=== PATIENT | female | born 1970 | race African-American/Black ===

== ENCOUNTER 2016-11-08 10:46 | Emergency (ER) | payer OTHER ==
[~2016-11-08] VITALS: Ht 154.9 cm; Wt 73.5 kg
[~2016-11-08 10:46] MED LIST: FLEXERIL PO; MICROGESTIN FE1 EACH PO; NAPROSYN500 MG PO; NAPROXEN 500MG500 MG PO; NORCO 5-325 TA1 EACH PO; SYNTHROID75 MCG PO
[2016-11-08] MEDS ORDERED: FLEXERIL PO (12:37)
[2016-11-08] MEDS ORDERED: NORCO 5-325 TA1 EACH PO (12:37)
[2016-11-08] MEDS ORDERED: IBUPROFEN 600600 M1 PO (12:37)
[2016-11-08] MEDS ORDERED: MEDROLDOSEPACK PO (12:37)
[2016-11-08 13:53] VITALS: BP 108/66
== END 2016-11-08 12:40 | disposition home or self-care (01) ==
LOC: ER 10:46
DX: S39.012A Strain of muscle, fascia and tendon of lower back, initial encounter (principal); M54.32 Sciatica, left side; E03.9 Hypothyroidism, unspecified; X50.0XXA Overexertion from strenuous movement or load, initial encounter; Y93.89 Activity, other specified; Y92.89 Other specified places as the place of occurrence of the external cause; Y99.8 Other external cause status